=== PATIENT | male | born 1980 | race Caucasian/White ===

== ENCOUNTER 2019-09-26 15:34 | Emergency (ER) | payer MEDICARE, MEDICAID ==
[2019-09-26 15:39] VITALS: BP 117/90
--- NOTE | 2019-09-26 15:54 | ER Document Report ---
HPI - HPI Time Seen by Provider: 09/26/19 15:38 Onset: Other - This 39-year-old male who presented to the emergency room today in the care of his father states that this gentleman has had a cough and congestion for the last 3 days. Pain Level: Denies Associated Symptoms: None - Yes remind us Relieved by: Denies Similar symptoms previously: Yes Recently seen / treated by doctor: Yes Past Medical History - General Information source: Patient - Social History Smoking Status: Never Smoker Family History: None Patient has suicidal ideation: No Patient has homicidal ideation: No Vertical Provider Document - CONSTITUTIONAL Agree With Documented VS: Yes - INFECTION CONTROL TRAVEL OUTSIDE OF THE [place] IN LAST 30 DAYS: No - HEENT HEENT: Atraumatic, Normocephalic, PERRLA, Pharyngeal Tenderness, Pharyngeal Erythema - NECK Neck: Normal Inspection - RESPIRATORY Respiratory: Breath Sounds Normal - GI/ABDOMEN Gastrointestinal: Abdomen Soft, Abdomen Non-Tender, Abdominal Guarding Course - Vital Signs Vital signs: Temp Pulse Resp BP Pulse Ox 98.4 F 113 H 16 117/90 H 97 09/26/19 15:38 09/26/19 15:38 09/26/19 15:38 09/26/19 15:38 09/26/19 15:38 Discharge - Discharge Clinical Impression: Reactive airway disease Qualifiers: Asthma severity: severe Asthma complication type: with status asthmaticus Disposition: HOME, SELF-CARE Instructions: Reactive Airway Disease ([facility]) Prescriptions: Clindamycin HCl [Cleocin HCl] 150 mg PO TID #30 capsule Prednisone [Deltasone 20 mg Tablet] 3 tab PO DAILY 5 Days #15 tablet
== END 2019-09-26 16:05 | disposition home or self-care (01) ==
LOC: ER 15:34
DX: J45.52 Severe persistent asthma with status asthmaticus (principal); R05 Cough; R09.81 Nasal congestion
CPT/HCPCS: 99283